=== PATIENT | female | born 1940 | race Caucasian/White ===

== ENCOUNTER 2019-05-03 17:00 | Emergency (ER) | payer MEDICARE, MEDICAID ==
[~2019-05-03] VITALS: Ht 147.3 cm; Wt 58.4 kg
[~2019-05-03 17:00] MED LIST: ASPI-535 PO; ATOR20TA38 PO; CEPH-443 PO; CLIN300C10 PO; CLOT30CR24 TOP; LOSA1TAB22 PO; OMEP20CA16 PO; OMEP20TA55 PO
[2019-05-03 18:56] VITALS: BP 172/76; PULSE 85; RESP 16; Ht 147.3 cm; Wt 58.4 kg
--- NOTE | 2019-05-03 19:18 | ERD ---
ER Documentation Chief Complaint Chief Complaint pt c/o right foot pain/swelling x 3 days HPI 79-year-old female, nondiabetic is here with right foot pain and some purulent drainage coming from her webspaces. She is had no fever. No trauma. She is ambulatory. No nausea or vomiting. No numbness or tingling. Pain is mild ROS All systems reviewed and are negative except as per history of present illness. Medications Home Meds Active Scripts Clotrimazole* (Clotrimazole* AF) 1% - 30 Gm Cream.gm., 1 APPLIC TOP BID for 7 Days, TUB Prov:AURELIANO PA PA-C 05/03/19 Clindamycin Hcl* (Clindamycin Hcl*) 300 Mg Capsule, 300 MG PO TID for 7 Days, CAP Prov:AURELIANO PA PA-C 05/03/19 Omeprazole Magnesium (Prilosec OTC) 20 Mg Tablet.dr, 20 MG PO DAILY for 14 Days, TAB Prov:MARIA EUGENIA OLIVAS PA-C 09/13/16 Allergies Allergies: Coded Allergies: No Known Allergy (Unverified , 09/13/16) PMhx/Soc Medical and Surgical Hx: pt denies Surgical Hx History of Surgery: No Anesthesia Reaction: No Hx Neurological Disorder: No Hx Respiratory Disorders: No Hx Cardiac Disorders: Yes (HTN, HDL) Hx Psychiatric Problems: No Hx Miscellaneous Medical Probl: No Hx Alcohol Use: No Hx Substance Use: No Hx Tobacco Use: No Smoking Status: Never smoker FmHx Family History: No diabetes Physical Exam Vitals Vital Signs Date Temp Pulse Resp B/P (MAP) Pulse Ox O2 O2 Flow FiO2 Time Delivery Rate 05/03/19 97.7 85 16 172/76 97 18:56 (108) Physical Exam Const: No acute distress Head: Atraumatic Eyes: Normal Conjunctiva ENT: Normal External Ears, Nose and Mouth. Neck: Full range of motion. No meningismus. Resp: Clear to auscultation bilaterally Cardio: Regular rate and rhythm, no murmurs Lower Extremity -right Skin: No significant dorsal erythema to the right foot however there is some scant purulent drainage in between the webspaces Compartments: Soft Motor: Full active range of motion hip/knee/ankle/foot Sensation: Intact to light touch FDWS/MF/LF/P surfaces. Bones: Nontender pelvis/knee/proximal tibia/ malleoli/foot Joints: No effusion or laxity Pulses/Perfusion: 2+ DP, Capillary refill < 2 seconds Procedures/MDM Nondiabetic female presents with a foot issue. Possibly fungal versus infectious so I will treat her with topical clotrimazole cream and also give her clindamycin. She should return in 2 days for wound check. Patient counseled regarding my diagnostic impression and care plan. Prior to discharge all questions answered. Pt agrees with treatment plan and understands strict return precautions. Pt is instructed to follow up with primary care provider within 24- 48 hours. Precautionary instructions provided including instructions to return to the ER if not improving or for any worsening or changing symptoms or concerns. Departure Diagnosis: Primary Impression: Rash Condition: Stable Patient Instructions: Self-Care for Skin Rashes Additional Instructions: Llame al doctor JOI y vicky mj CRUZ PARA DENTRO DE 1-2 HO[place].Dgale a la secretaria que nosotros le instruimos hacer esta cruz.Avise o llame si davis condicin se empeora antes de la cruz. Regresa aqui si peor o no mejor. AURELIANO PA PA-C May 03, 2019 19:18
== END 2019-05-03 19:29 | disposition home or self-care (01) ==
LOC: E/R 17:00 → FTE 19:29
DX: L98.8 Other specified disorders of the skin and subcutaneous tissue (principal); I10 Essential (primary) hypertension
CPT/HCPCS: 99282

== ENCOUNTER 2019-05-22 11:14 | Emergency (ER) | payer OTHER ==
[~2019-05-22] VITALS: Ht 152.4 cm; Wt 56.9 kg
[2019-05-22 11:21] VITALS: BP 159/76; PULSE 116; RESP 18; Ht 152.4 cm; Wt 56.9 kg
[2019-05-22] MEDS ORDERED: FAMOTIDINE 20 MG INJ IV STA (12:30)
[2019-05-22] MEDS ORDERED: LIDOCAINE/MYLANTA 40 ML BTL PO STA (12:30)
== END 2019-05-22 15:14 | disposition home or self-care (01) ==
LOC: E/R 11:14
DX: N30.00 Acute cystitis without hematuria (principal); I10 Essential (primary) hypertension; Z79.82 Long term (current) use of aspirin
CPT/HCPCS: 36415; 74176; 76705; 80053; 81001; 83690; 84484; 85025; 93005; 96374